=== PATIENT | male | born 1980 | race African-American/Black ===

== ENCOUNTER 2020-06-02 21:03 | Emergency (ER) | payer OTHER ==
[~2020-06-02] VITALS: Ht 180.3 cm; Wt 93.8 kg
--- NOTE | 2020-06-02 21:34 | PHYS DOC ---
Past Medical History Past Medical History: No Pertinent History Past Surgical History: Other Additional Past Surgical Histo: wrist sx Smoking Status: Current Every Day Smoker Alcohol Use: Occasionally Drug Use: Marijuana General Adult EDM: Chief Complaint: HEADACHE HPI: HPI: Patient is a 39-year-old male with no past medical history on no current medications no allergies no history of surgeries he is a smoker denies drinking or any street drugs presents with a chief complaint of headache. Patient states his entire head hurts and is a 4 out of 10. Patient states pain has been ongoing for 1 week comes and goes. He denies any associated nausea vomiting or visual changes. Patient states he has not taken any xgqy-nos-wshuldy medications such as Tylenol and ibuprofen for his pain. He states he wants his head checked out and is declining any pain medications. During my exam patient is alert and oriented x4 he is in no acute distress he is actually talking to someone on his cell phone during my entire HPI/PE. Review of Systems: Review of Systems: Constitutional: Denies fever or chills. [] Eyes: Denies change in visual acuity. [] HENT: Denies nasal congestion or sore throat. [] Respiratory: Denies cough or shortness of breath. [] Cardiovascular: Denies chest pain or edema. [] GI: Denies abdominal pain, nausea, vomiting, bloody stools or diarrhea. [] : Denies dysuria. [] Musculoskeletal: Denies back pain or joint pain. [] Integument: Denies rash. [] Neurologic: Denies focal weakness or sensory changes. [Positive headache,] Endocrine: Denies polyuria or polydipsia. [] Lymphatic: Denies swollen glands. [] Psychiatric: Denies depression or anxiety. [] Heart Score: Risk Factors: Risk Factors: DM, Current or recent (<one month) smoker, HTN, HLP, family history of CAD, obesity. Risk Scores: Score 0 - 3: 2.5% MACE over next 6 weeks - Discharge Home Score 4 - 6: 20.3% MACE over next 6 weeks - Admit for Clinical Observation Score 7 - 10: 72.7% MACE over next 6 weeks - Early Invasive Strategies Allergies: Allergies: Allergies Coded Allergies Type Severity Reaction Last Updated Verified No Known Drug Allergies 12/20/13 No Physical Exam: PE: Constitutional: Well developed, well nourished, no acute distress, non-toxic appearance. [] HENT: Normocephalic, atraumatic, bilateral external ears normal, oropharynx moist, no oral exudates, nose normal. [] Eyes: PERRLA, EOMI, conjunctiva normal, no discharge. [] Neck: Normal range of motion, no tenderness, supple, no stridor. [] Cardiovascular:Heart rate regular rhythm, no murmur [] Lungs & Thorax: Bilateral breath sounds clear to auscultation [] Abdomen: Bowel sounds normal, soft, no tenderness, no masses, no pulsatile masses. [] Skin: Warm, dry, no erythema, no rash. [] Back: No tenderness, no CVA tenderness. [] Extremities: No tenderness, no cyanosis, no clubbing, ROM intact, no edema. [] Neurologic: Alert and oriented X 3, normal motor function, normal sensory function, no focal deficits noted. [] Psychologic: Affect normal, judgement normal, mood normal. [] EKG: EKG: [] Radiology/Procedures: Radiology/Procedures: [] Impression: CT head without contrast: Reason for examination: Headache. Comparison is made to previous study dated 12/20/2013. Axial images were obtained through the brain. No contrast was administered. Exposure: One or more of the following individualized dose reduction techniques were utilized for this examination: 1. Automated exposure control 2. Adjustment of the mA and/or kV according to patient size 3. Use of iterative reconstruction technique. Ventricular systems are symmetric and not dilated. No midline shift is seen. There is no evidence of intracranial hemorrhage, infarct, mass or edema. No abnormalities are seen at the orbits. The paranasal sinuses and mastoid air cells are clear. No acute skull abnormality is seen. IMPRESSION: Course & Med Decision Making: Course & Med Decision Making Pertinent Labs and Imaging studies reviewed. (See chart for details) [] Patient was evaluated for chief complaint. Work-up consisted of radiologic imaging. CT head negative. Patient declined pain medication. Patient be discharged home. Dragon Disclaimer: Dragon Disclaimer: This electronic medical record was generated, in whole or in part, using a voice recognition dictation system. Departure Departure Impression: Primary Impression: Headache Disposition: 01 DC HOME SELF CARE/HOMELESS Condition: STABLE Referrals: NO PCP (PCP) Patient Instructions: General Headache Without Cause YUE BARRAZA DO Jun 02, 2020 21:34
--- NOTE | 2020-06-02 21:57 | RAD ---
CT head without contrast: Reason for examination: Headache. Comparison is made to previous study dated 12/20/2013. Axial images were obtained through the brain. No contrast was administered. Exposure: One or more of the following individualized dose reduction techniques were utilized for this examination: 1. Automated exposure control 2. Adjustment of the mA and/or kV according to patient size 3. Use of iterative reconstruction technique. Ventricular systems are symmetric and not dilated. No midline shift is seen. There is no evidence of intracranial hemorrhage, infarct, mass or edema. No abnormalities are seen at the orbits. The paranasal sinuses and mastoid air cells are clear. No acute skull abnormality is seen. IMPRESSION: No acute intracranial abnormality evident. Electronically signed by: Jamia Burt MD (06/02/2020 9:54 PM) [facility]
[2020-06-02 22:04] VITALS: BP 126/71
== END 2020-06-02 22:04 | disposition home or self-care (01) ==
LOC: ER 21:03
DX: R51.9 Headache, unspecified (principal); F17.200 Nicotine dependence, unspecified, uncomplicated
CPT/HCPCS: 70450; 99284

== ENCOUNTER 2020-06-04 15:40 | Emergency (ER) | payer OTHER ==
[~2020-06-04] VITALS: Ht 180.3 cm; Wt 95.2 kg
[2020-06-04 19:29] VITALS: BP 115/83
[2020-06-04] MEDS ORDERED: TOBR5DRO6 EACHEYE (20:21)
--- NOTE | 2020-06-04 20:22 | PHYS DOC ---
Past Medical History Past Medical History: No Pertinent History Past Surgical History: Other Additional Past Surgical Histo: wrist Fx Smoking Status: Current Every Day Smoker Alcohol Use: None Drug Use: Marijuana General Adult EDM: Chief Complaint: MULTIPLE COMPLAINTS HPI: HPI: Patient is a 39 year old male who presents to the ED today with another family member concerned they have COVID-19. Patient states another family member tested positive for COVID-19 10 days ago and now he has a sore throat cough body aches and bilateral eye redness. Review of Systems: Review of Systems: Constitutional: Reports body aches, denies fever Eyes: Reports bilateral eye redness denies change in visual acuity. [] HENT: Reports sore throat. Denies nasal congestion Respiratory: Reports cough, denies shortness of breath. [] Cardiovascular: Denies chest pain or edema. [] GI: Denies abdominal pain, nausea, vomiting, bloody stools or diarrhea. [] : Denies dysuria. [] Musculoskeletal: Denies back pain or joint pain. [] Integument: Denies rash. [] Neurologic: Denies headache, focal weakness or sensory changes. [] Psychiatric: Denies depression or anxiety. [] Heart Score: Risk Factors: Risk Factors: DM, Current or recent (<one month) smoker, HTN, HLP, family history of CAD, obesity. Risk Scores: Score 0 - 3: 2.5% MACE over next 6 weeks - Discharge Home Score 4 - 6: 20.3% MACE over next 6 weeks - Admit for Clinical Observation Score 7 - 10: 72.7% MACE over next 6 weeks - Early Invasive Strategies Allergies: Allergies: Allergies Coded Allergies Type Severity Reaction Last Updated Verified No Known Drug Allergies 12/20/13 No Physical Exam: PE: Constitutional: Well developed, well nourished, no acute distress, non-toxic appearance. [] HENT: Normocephalic, atraumatic, bilateral external ears normal, oropharynx moist, no oral exudates, nose normal. [] Eyes: PERRLA, EOMI, slight injection to bilateral conjunctiva no discharge. [] Neck: Normal range of motion, no tenderness, supple, no stridor. [] Cardiovascular:Heart rate regular rhythm, no murmur [] Lungs & Thorax: Bilateral breath sounds clear to auscultation [] Abdomen: Bowel sounds normal, soft, no tenderness, no masses, no pulsatile masses. [] Skin: Warm, dry, no erythema, no rash. [] Back: No tenderness, no CVA tenderness. [] Extremities: No tenderness, no cyanosis, no clubbing, ROM intact, no edema. [] Neurologic: Alert and oriented X 3, normal motor function, normal sensory function, no focal deficits noted. [] Psychologic: Affect normal, judgement normal, mood normal. [] Current Patient Data: Vital Signs: Vital Signs Date Time Temp Pulse Resp B/P (MAP) Pulse Ox O2 Delivery O2 Flow Rate FiO2 06/04/20 19:29 86 18 115/83 (94) 98 Room Air 06/04/20 17:52 97.6 97.6 EKG: EKG: [] Radiology/Procedures: Radiology/Procedures: [] Course & Med Decision Making: Course & Med Decision Making Pertinent Labs and Imaging studies reviewed. (See chart for details) This is a 39-year-old male patient presenting to the ED today complaining of fev er, body aches, sore throat and bilateral eye redness that began yesterday, he was exposed to COVID-19 10 days ago. Patient was tested for COVID-19. Given prescription for tobramycin for pinkeye. Provided instructions to quarantine himself until he gets his results back for COVID-19. Good hand hygiene emphasized. Tylenol/Motrin for pain or fever. Follow-up with his own doctor in 2 weeks Kiran Disclaimer: Kiran Disclaimer: This electronic medical record was generated, in whole or in part, using a voice recognition dictation system. Departure Departure Impression: Primary Impression: Cough Additional Impressions: Sorethroat Person under investigation for COVID-19 Bacterial conjunctivitis of both eyes Disposition: 01 DC HOME SELF CARE/HOMELESS Condition: STABLE Referrals: NO PCP (PCP) follow up with your doctor in 2 weeks Patient Instructions: Bacterial Conjunctivitis, [id number], Cough, Adult, Syiz-co-Opeu, Sore Throat, [id number] Additional Instructions: We tested you for COVID-19, please quarantine yourself until you get results. We will call you when results are available. Push fluids, maintain good and hygiene, rest. Use the prescription medicine as ordered. Follow-up with your doctor in 2 weeks Scripts Tobramycin (TOBRAMYCIN) 5 Ml Drops 1 DROP EACHEYE QID for 7 Days, #5 ML 0 Refills Prov: SUSY BARRERA APRN 06/04/20 SUSY BARRERA APRN Jun 04, 2020 20:22
--- NOTE | 2020-06-06 13:45 | NUR ---
IP: Informed pt of negative COVID test. Pt verbalized understanding.
== END 2020-06-04 20:32 | disposition home or self-care (01) ==
LOC: ER 15:40
DX: J02.9 Acute pharyngitis, unspecified (principal); Z20.828 Contact with and (suspected) exposure to other viral communicable diseases; R05 Cough; H10.89 Other conjunctivitis; F17.200 Nicotine dependence, unspecified, uncomplicated; F12.90 Cannabis use, unspecified, uncomplicated; Z98.890 Other specified postprocedural states
CPT/HCPCS: 99283; C9803; U0003

== ENCOUNTER 2020-09-12 06:55 | Emergency (ER) | payer OTHER ==
[~2020-09-12] VITALS: Ht 180.3 cm; Wt 95.0 kg
[~2020-09-12 06:55] MED LIST: TOBR5DRO6 EACHEYE
[2020-09-12] MEDS ORDERED: DEXAMETHASONE 4 MG TABLET PO SCH (07:30)
[2020-09-12] MEDS ORDERED: DEXAMETHASONE 4 MG TABLET PO STA (07:34)
--- NOTE | 2020-09-12 07:46 | RAD ---
AP chest. HISTORY: Short of breath AP view was taken of the chest. Lungs are clear. Heart is normal in size. There is no pleural effusio n. IMPRESSION: 1. No acute chest disease. Electronically signed by: Alvaro Raymundo MD (09/12/2020 7:43 AM) [id number]
[2020-09-12 08:37] LABS: BASO % 1 % (0-3); EOS # 0.2 x10^3/uL (0.0-0.7); EOS % 2 % (0-3); HEMOGLOBIN 15.3 g/dL (13.0-17.5); LYMPH # 3.2 x10^3/uL (1.0-4.8); LYMPH % 49 % (24-48); MEAN CORPUSCULAR HEMOGLOBIN 33 pg (25-35); MEAN CORPUSCULAR HGB CONC 35 g/dL (31-37); MEAN CORPUSCULAR VOLUME 95 fL (79-100); MONO # 0.4 x10^3/uL (0.0-1.1); MONO % 6 % (0-9); NEUT # 2.8 x10^3/uL (1.8-7.7); NEUT % 42 % (31-73); PLATELET COUNT 183 x10^3/uL (140-400); RED BLOOD COUNT 4.64 x10^6/uL (4.30-5.70); RED CELL DISTRIBUTION WIDTH 13.8 % (11.5-14.5); WHITE BLOOD COUNT 6.6 x10^3/uL (4.0-11.0)
[2020-09-12 08:52] LABS: CALCIUM 9.8 mg/dL (8.5-10.1); CREATININE 1.1 mg/dL (0.7-1.3); GFR 91.1; POTASSIUM 3.8 mmol/L (3.5-5.1)
[2020-09-12 08:59] VITALS: BP 120/82
[2020-09-12] MEDS ORDERED: PRED50TA PO (09:14)
[2020-09-12] MEDS ORDERED: VENTOLIN HFA18 GM INH (09:14)
--- NOTE | 2020-09-12 09:18 | ED.ADGEN ---
Past Medical History Past Medical History: No Pertinent History Past Surgical History: Other Additional Past Surgical Histo: wrist Fx Smoking Status: Current Every Day Smoker Alcohol Use: None Drug Use: Marijuana General Adult EDM: Chief Complaint: ASTHMA HPI: HPI: Patient is a 39-year-old male with past medical history of asthma who presents to the emergency room complaining of shortness of breath and intermittent chest pains when he breathes. Patient has had these symptoms multiple times in the past. He states that sometimes he gets these symptoms. He had a work-up done at [facility] a month ago. He states that he has some kind of blockage but is not sure what that means. He is not sure if that is related to his lungs or his heart. He is not on any kind of blood thinners. They told him to follow-up with his primary care physician but he has not done that yet. He states that this started last night. He has not tried anything at home for it. He does not have an inhaler. He states the pain is mild and achy when taking deep breaths at times. He denies any cough or fever. Review of Systems: Review of Systems: Complete ROS is negative unless otherwise documented in HPI Current Medications: Current Medications Medications (Trade) Dose Ordered Sig/Latisha Start Time Stop Time Status Last Admin Dose Admin Dexamethasone (Decadron) 10 mg STAT STAT 09/12/20 07:34 09/12/20 07:41 DC 09/12/20 07:43 10 MG Allergies: Allergies: Allergies Coded Allergies Type Severity Reaction Last Updated Verified No Known Drug Allergies 12/20/13 No Physical Exam: PE: General: Awake, alert, NAD. Well Nourished, well hydrated. Cooperative HEENT: Atraumatic, EOMI, PERRL, airway patent, moist oral mucosa Neck: Supple, trachea midline Respiratory: CTA bilaterally, normal effort, no wheezing/crackles CV: RRR, no murmur, cap refill <2 GI: Soft, nondistended, nontender, no masses MSK: No obvious deformities Skin: Warm, dry, intact Neuro: A&O x3, speech NL, sensory and motor grossly intact, no focal deficits Psych: Normal affect, normal mood, not suicidal or homicidal Current Patient Data: Labs: Laboratory Tests Test 09/12/20 08:29 White Blood Count 6.6 x10^3/uL (4.0-11.0) Red Blood Count 4.64 x10^6/uL (4.30-5.70) Hemoglobin 15.3 g/dL (13.0-17.5) Hematocrit 44.0 % (39.0-53.0) Mean Corpuscular Volume 95 fL (79-100) Mean Corpuscular Hemoglobin 33 pg (25-35) Mean Corpuscular Hemoglobin Concent 35 g/dL (31-37) Red Cell Distribution Width 13.8 % (11.5-14.5) Platelet Count 183 x10^3/uL (140-400) Neutrophils (%) (Auto) 42 % (31-73) Lymphocytes (%) (Auto) 49 % (24-48) H Monocytes (%) (Auto) 6 % (0-9) Eosinophils (%) (Auto) 2 % (0-3) Basophils (%) (Auto) 1 % (0-3) Neutrophils # (Auto) 2.8 x10^3/uL (1.8-7.7) Lymphocytes # (Auto) 3.2 x10^3/uL (1.0-4.8) Monocytes # (Auto) 0.4 x10^3/uL (0.0-1.1) Eosinophils # (Auto) 0.2 x10^3/uL (0.0-0.7) Basophils # (Auto) 0.0 x10^3/uL (0.0-0.2) Sodium Level 142 mmol/L (136-145) Potassium Level 3.8 mmol/L (3.5-5.1) Chloride Level 104 mmol/L (98-107) Carbon Dioxide Level 29 mmol/L (21-32) Anion Gap 9 (6-14) Blood Urea Nitrogen 11 mg/dL (8-26) Creatinine 1.1 mg/dL (0.7-1.3) Estimated GFR (Cockcroft-Gault) 91.1 Glucose Level 82 mg/dL (70-99) Calcium Level 9.8 mg/dL (8.5-10.1) Troponin I Quantitative < 0.017 ng/mL (0.000-0.055) XW-Osw-T-Type Natriuretic Peptide 6 pg/mL (0-124) Laboratory Tests 09/12/20 08:29 Laboratory Tests 09/12/20 08:29 Vital Signs: Vital Signs Date Time Temp Pulse Resp B/P (MAP) Pulse Ox O2 Delivery O2 Flow Rate FiO2 09/12/20 06:55 98.1 90 20 115/65 (82) 100 Room Air 98.1 EKG: EKG: [] Heart Score: Risk Factors: Risk Factors: DM, Current or recent (<one month) smoker, HTN, HLP, family history of CAD, obesity. Risk Scores: Score 0 - 3: 2.5% MACE over next 6 weeks - Discharge Home Score 4 - 6: 20.3% MACE over next 6 weeks - Admit for Clinical Observation Score 7 - 10: 72.7% MACE over next 6 weeks - Early Invasive Strategies Radiology/Procedures: Radiology/Procedures: [] Course & Med Decision Making: Course & Med Decision Making Pertinent Labs and Imaging studies reviewed. (See chart for details) Patient is a 39-year-old male who presents to the emergency room complaining of shortness of breath. Patient is well-appearing. Vitals are normal. Patient does not have any hypoxia obvious shortness of breath on exam. Chest x-ray is normal. Due to patient's history of possible blockage did do a troponin and BNP which are both normal. Patient is not anemic. Electrolytes are normal. He is not in any other arrhythmia. It is possible he could be having an asthma exacerbation. We will place him on steroids and will give him a prescription for his inhaler. Patient's test results and vitals while in the ED were fully reviewed and discussed with the patient. Patient is stable and at this time does not need admission to the hospital. We have discussed strict return precautions and the importance of following up with their Primary Care Physician. Patient stated understanding and was given an opportunity to ask any questions. Patient is in agreement with plan. Kiran Disclaimer: Kiran Disclaimer: This electronic medical record was generated, in whole or in part, using a voice recognition dictation system. Departure Departure Impression: Primary Impression: Asthma Additional Impression: Shortness of breath Disposition: 01 DC HOME SELF CARE/HOMELESS Condition: STABLE Referrals: NO PCP (PCP) Patient Instructions: Shortness of Breath Scripts Albuterol Sulfate (VENTOLIN HFA INHALER) 18 Gm Hfa.aer.ad 2 PUFF INH QID for FOR ASTHMA, #1 INHALER 0 Refills Prov: CHAPARRO MCCOY MD 09/12/20 Prednisone (PREDNISONE) 50 Mg Tablet 1 TAB PO DAILY, #5 TAB Prov: CHAPARRO MCCOY MD 09/12/20 Problem Qualifiers CHAPARRO MCCOY MD Sep 12, 2020 09:18
--- NOTE | 2020-09-12 17:45 | EKG ---
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
== END 2020-09-12 09:35 | disposition home or self-care (01) ==
LOC: ER 06:55
DX: J45.909 Unspecified asthma, uncomplicated (principal); R06.02 Shortness of breath; R07.89 Other chest pain; F17.200 Nicotine dependence, unspecified, uncomplicated; F12.90 Cannabis use, unspecified, uncomplicated; Z98.890 Other specified postprocedural states
CPT/HCPCS: 36415; 71045; 80048; 83880; 84484; 85025; 93005; 99285

== ENCOUNTER 2021-02-23 14:48 | Emergency (ER) | payer OTHER ==
[~2021-02-23] VITALS: Ht 177.8 cm; Wt 81.8 kg
[~2021-02-23 14:48] MED LIST changes: +PRED50TA PO; +VENTOLIN HFA18 GM INH
[2021-02-23 14:51] VITALS: BP 120/82
--- NOTE | 2021-02-23 15:27 | PHYS DOC ---
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 Patient works for [employer]. Patient states symptoms are worse when lifting things above the head. States immobilization relieves some of the pain. (SUSY BARRERA NIGHT CLERK AUDITOR) Review of Systems: Review of Systems: Constitutional: Denies fever or chills. [] Musculoskeletal: Reports right shoulder pain. Denies back pain o Integument: Denies rash. [] Neurologic: Denies headache, focal weakness or sensory changes. [] Psychiatric: Denies depression or anxiety. [] (SUSY BARRERA NIGHT CLERK AUDITOR) Heart Score: C/O Chest Pain: N/A Risk Factors: Risk Factors: DM, Current or recent (<one month) smoker, HTN, HLP, family history of CAD, obesity. Risk Scores: Score 0 - 3: 2.5% MACE over next 6 weeks - Discharge Home Score 4 - 6: 20.3% MACE over next 6 weeks - Admit for Clinical Observation Score 7 - 10: 72.7% MACE over next 6 weeks - Early Invasive Strategies (SUSY BARRERA Viraj NIGHT CLERK AUDITOR) Allergies: Allergies: Allergies Coded Allergies Type Severity Reaction Last Updated Verified No Known Drug Allergies 12/20/13 No (SUSY BARRERA NIGHT CLERK AUDITOR) Physical Exam: PE: Constitutional: Well developed, well nourished, no acute distress, non-toxic appearance. []. [] Skin: Warm, dry, no erythema, no rash. [] Back: No tenderness, no CVA tenderness. [] Extremities: Right shoulder with no obvious deformity, full range of motion to the right upper extremity/shoulder. Adequate radial, medial, ulnar sensation to the right upper extremity. +2 right radial pulse. Cap refill less than 2 seconds of right fingers Neurologic: Alert and oriented X 3, normal motor function, normal sensory function, no focal deficits noted. [] Psychologic: Affect normal, judgement normal, mood normal. [] (SUSY BARRERA APRN) Current Patient Data: Vital Signs: Vital Signs Date Time Temp Pulse Resp B/P (MAP) Pulse Ox O2 Delivery O2 Flow Rate FiO2 02/23/21 14:51 98.2 68 18 120/82 (95) 99 Room Air 98.2 (SUSY BARRERA APRN) EKG: EKG: [] (SUSY BARRERA APRN) Radiology/Procedures: Radiology/Procedures: [] (SUSY BARRERA APRN) Radiology/Procedures: PROCEDURE: SHOULDER 2+V RIGHT EXAMINATION: Right shoulder radiograph. VIEWS: 3 COMPARISON: None INDICATION:40 years, Male, pain. FINDINGS: No acute fracture, dislocation or subluxation. No bone erosion or periosteal reaction. No soft tissue swelling. IMPRESSION: No acute osseous process. Electronically signed by: Christi Horan MD (02/23/2021 6:30 PM) [facility] (BRITTANY PAZ DO) Course & Med Decision Making: Course & Med Decision Making Pertinent Labs and Imaging studies reviewed. (See chart for details) This is a 40-year-old male patient presented to the ED today with right shoulder pain after lifting heavy items at work. Right shoulder x-rays interpreted by Dr. Paz and negative for any acute findings. Discharge to home. Ice elevation encouraged. Follow-up with Ortho. You were evaluated in the emergency room for right shoulder pain, your right shoulder x-rays are negative for any acute findings. Try to ice and elevate the affected extremity. Take the prescribed medications as needed. Follow-up with your doctor in 1 to 2 weeks on the provided orthopedic doctor (SUSY BARRERA APRN) Dragon Disclaimer: Dragon Disclaimer: This electronic medical record was generated, in whole or in part, using a voice recognition dictation system. (SUSY BARRERA APRN) Departure Departure Impression: Primary Impression: Strain of right shoulder Qualified Codes: S46.911A - Strain of unspecified muscle, fascia and tendon at shoulder and upper arm level, right arm, initial encounter Disposition: HOME / SELF CARE / HOMELESS Condition: STABLE Referrals: NO PCP (PCP) VANI MARTINEZ MD Follow-up in 1 to 2 weeks Patient Instructions: Shoulder Exercises, Generic, SportsMed, Shoulder Sprain Additional Instructions: You were evaluated for right shoulder pain, your right shoulder x-rays are negative for any acute findings, you likely strained your shoulder. Try to ice and elevate the shoulder. Take it through full range of motion several times a day. Follow-up with your primary care doctor or the provided orthopedic doctor in 1 week Scripts Naproxen (NAPROXEN) 500 Mg Tablet 1 TAB PO BID for pain, #20 TAB 0 Refills Prov: SUSY BARRERA APRN 02/23/21 Cyclobenzaprine Hcl (CYCLOBENZAPRINE HCL) 10 Mg Tablet 1 TAB PO TID, #30 TAB Prov: SUSY BARRERA APRN 02/23/21 Attending Signature Attending Signature I have reviewed the PA/MOLDING SUPERVISOR's note and plan of care. I was available for consultation as needed during the patient's visit in the emergency department. I agree with the clinical impression, plan, and disposition. (BRITTANY PAZ DO) SUSY BARRERA APRN Feb 23, 2021 15:27 BRITTANY PAZ DO Feb 23, 2021 18:42
[2021-02-23] MEDS ORDERED: CYCL10TA2 PO (17:30)
[2021-02-23] MEDS ORDERED: NAPR-514 PO (17:30)
--- NOTE | 2021-02-23 18:32 | RAD ---
EXAMINATION: Right shoulder radiograph. VIEWS: 3 COMPARISON: None INDICATION:40 years, Male, pain. FINDINGS: No acute fracture, dislocation or subluxation. No bone erosion or periosteal reaction. No soft tissue swelling. IMPRESSION: No acute osseous process. Electronically signed by: Christi Horan MD (02/23/2021 6:30 PM) [facility]
== END 2021-02-23 18:12 | disposition home or self-care (01) ==
LOC: ER 14:48
DX: S46.911A Strain of unspecified muscle, fascia and tendon at shoulder and upper arm level, right arm, initial encounter (principal); F17.200 Nicotine dependence, unspecified, uncomplicated; X50.0XXA Overexertion from strenuous movement or load, initial encounter; Y93.89 Activity, other specified; Y92.69 Other specified industrial and construction area as the place of occurrence of the external cause; Y99.0 Civilian activity done for income or pay
CPT/HCPCS: 73030; 99283; A4565

== ENCOUNTER 2021-12-17 10:24 | Emergency (ER) | payer OTHER ==
[~2021-12-17] VITALS: Ht 180.3 cm; Wt 99.6 kg
[~2021-12-17 10:24] MED LIST changes: +CYCL10TA19 PO; +NAPR-514 PO
[2021-12-17] MEDS ORDERED: IV NORMAL SALINE 1000ML BAG 1,000 ML IV ONE (11:15)
[2021-12-17 11:22] LABS: BASO % 1 % (0-3); EOS # 0.2 x10^3/uL (0.0-0.7); EOS % 5 % (0-3); HEMATOCRIT 43.2 % (39.0-53.0); HEMOGLOBIN 14.8 g/dL (13.0-17.5); LYMPH # 2.5 x10^3/uL (1.0-4.8); LYMPH % 47 % (24-48); MEAN CORPUSCULAR HEMOGLOBIN 31 pg (25-35); MEAN CORPUSCULAR HGB CONC 34 g/dL (31-37); MEAN CORPUSCULAR VOLUME 92 fL (79-100); MONO # 0.3 x10^3/uL (0.0-1.1); MONO % 6 % (0-9); NEUT # 2.2 x10^3/uL (1.8-7.7); NEUT % 42 % (31-73); PLATELET COUNT 204 x10^3/uL (140-400); RED BLOOD COUNT 4.72 x10^6/uL (4.30-5.70); RED CELL DISTRIBUTION WIDTH 14.2 % (11.5-14.5); WHITE BLOOD COUNT 5.4 x10^3/uL (4.0-11.0)
[2021-12-17 11:37] LABS: CALCIUM 9.4 mg/dL (8.5-10.1); CREATININE 1.2 mg/dL (0.7-1.3); GFR 81.6; POTASSIUM 3.9 mmol/L (3.5-5.1)
[2021-12-17 11:44] LABS: ALBUMIN 3.8 g/dL (3.4-5.0); TOTAL BILIRUBIN 0.4 mg/dL (0.2-1.0); TOTAL PROTEIN 7.8 g/dL (6.4-8.2)
[2021-12-17 11:58] LABS: BACTERIA,URINE 0 /HPF (0-FEW); RBC,URINE 0 /HPF (0-2); WBC,URINE 0 /HPF (0-4)
--- NOTE | 2021-12-17 12:23 | EKG ---
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
--- NOTE | 2021-12-17 12:33 | RAD ---
EXAM: Abdomen and pelvis CT without intravenous contrast. HISTORY: Pain. TECHNIQUE: Computed tomographic images of the abdomen and pelvis were obtained without contrast. Mult iplanar reformatting was performed. *One or more of the following individualized dose reduction techniques were utilized for this examina tion: 1. Automated exposure control. 2. Adjustment of the mA and/or kV according to patient size. 3. Use of iterative reconstruction technique. COMPARISON: None. FINDINGS: Evaluation of the lower thorax demonstrates posterior dependent atelectases. There are calc ified granulomas within the right lung base. There is no infiltrate or pleural effusion. There is an ill-defined suspected hypodense lesion within the anterior right hepatic lobe measuring a pproximately 2.0 cm. The gallbladder, pancreas and adrenal glands are unremarkable. There is a small granuloma within the normal sized spleen. The kidneys are unremarkable. There is no appendicitis. There is no bowel obstruction. There is no abnormal bowel wall thickening. There is moderate stool within the rectum. The bladder is unremarkable. There is a tiny amount of asy mmetric fat within the right inguinal canal. The aorta is normal in caliber. There is no acute or cherise picious osseous finding. There is a transitional lumbosacral segment, a normal variant. The right asp ect of this segment is partially fused with the underlying sacrum. IMPRESSION: 1. No acute abdominal or pelvic finding. 2. Moderate rectal stool. 3. 2.0 cm suspected indeterminate lesion within the right hepatic lobe. This may be visible sonograph ically. Electronically signed by: Connie Bailey MD (12/17/2021 12:30 PM) [id number]
--- NOTE | 2021-12-17 12:52 | PHYS DOC ---
Past Medical History Past Medical History: No Pertinent History (LIGIA NOEL APRN) Past Surgical History: Other Additional Past Surgical Histo: wrist Fx (LIGIA NOEL APRN) Smoking Status: Current Every Day Smoker Alcohol Use: None Drug Use: Marijuana (LIGIA NOEL APRN) General Adult EDM: Chief Complaint: MULTIPLE COMPLAINTS HPI: HPI: Patient is a 41-year-old male who presents today with feeling dehydrated. 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 Patient states he has noted blood in his urine as well when he voids. Patient denies chest pain, shortness of breath, and fever and chills. (LIGIA NOEL APRN) Review of Systems: Review of Systems: Constitutional: Denies fever or chills. [] Eyes: Denies change in visual acuity. [] HENT: Denies nasal congestion or sore throat. [] Respiratory: Denies cough or shortness of breath. [] Cardiovascular: Denies chest pain or edema. [] GI: Dehydration, nausea denies abdominal pain, vomiting, bloody stools or diarrhea. [] : Denies dysuria. [] Musculoskeletal: Denies back pain or joint pain. [] Integument: Denies rash. [] Neurologic: Denies headache, focal weakness or sensory changes. [] Endocrine: Denies polyuria or polydipsia. [] Lymphatic: Denies swollen glands. [] Psychiatric: Denies depression or anxiety. [] (LIGIA NOEL APRN) Heart Score: C/O Chest Pain: No Risk Factors: Risk Factors: DM, Current or recent (<one month) smoker, HTN, HLP, family history of CAD, obesity. Risk Scores: Score 0 - 3: 2.5% MACE over next 6 weeks - Discharge Home Score 4 - 6: 20.3% MACE over next 6 weeks - Admit for Clinical Observation Score 7 - 10: 72.7% MACE over next 6 weeks - Early Invasive Strategies (LIGIA NOEL APRN) Current Medications: Current Medications Medications (Trade) Dose Ordered Sig/Latisha Start Time Stop Time Status Last Admin Dose Admin Sodium Chloride 1,000 ml @ 999 mls/hr 1X ONCE 12/17/21 11:15 12/17/21 12:15 DC 12/17/21 11:12 999 MLS/HR (LIGIA NOEL APRN) Allergies: Allergies: Allergies Coded Allergies Type Severity Reaction Last Updated Verified No Known Drug Allergies 12/20/13 No (LIGIA NOEL APRN) Physical Exam: PE: Constitutional: Well developed, well nourished, no acute distress, non-toxic appearance. [] HENT: Normocephalic, atraumatic, bilateral external ears normal, oropharynx moist, no oral exudates, nose normal. [] Eyes: PERRLA, EOMI, conjunctiva normal, no discharge. [] Neck: Normal range of motion, no tenderness, supple, no stridor. [] Cardiovascular:Heart rate regular rhythm, no murmur [] Lungs & Thorax: Bilateral breath sounds clear to auscultation [] Abdomen: Bowel sounds normal, soft, no tenderness, no masses, no pulsatile masses. [] Skin: Warm, dry, no erythema, no rash. [] Back: No tenderness, no CVA tenderness. [] Extremities: No tenderness, no cyanosis, no clubbing, ROM intact, no edema. [] Neurologic: Alert and oriented X 3, normal motor function, normal sensory function, no focal deficits noted. [] Psychologic: Affect normal, judgement normal, mood normal. [] (LIGIA NOEL APRN) Current Patient Data: Labs: Laboratory Tests Test 12/17/21 11:02 12/17/21 11:40 White Blood Count 5.4 x10^3/uL (4.0-11.0) Red Blood Count 4.72 x10^6/uL (4.30-5.70) Hemoglobin 14.8 g/dL (13.0-17.5) Hematocrit 43.2 % (39.0-53.0) Mean Corpuscular Volume 92 fL (79-100) Mean Corpuscular Hemoglobin 31 pg (25-35) Mean Corpuscular Hemoglobin Concent 34 g/dL (31-37) Red Cell Distribution Width 14.2 % (11.5-14.5) Platelet Count 204 x10^3/uL (140-400) Neutrophils (%) (Auto) 42 % (31-73) Lymphocytes (%) (Auto) 47 % (24-48) Monocytes (%) (Auto) 6 % (0-9) Eosinophils (%) (Auto) 5 % (0-3) H Basophils (%) (Auto) 1 % (0-3) Neutrophils # (Auto) 2.2 x10^3/uL (1.8-7.7) Lymphocytes # (Auto) 2.5 x10^3/uL (1.0-4.8) Monocytes # (Auto) 0.3 x10^3/uL (0.0-1.1) Eosinophils # (Auto) 0.2 x10^3/uL (0.0-0.7) Basophils # (Auto) 0.0 x10^3/uL (0.0-0.2) D-Dimer (Poornima) < 0.27 ug/mlFEU Sodium Level 139 mmol/L (136-145) Potassium Level 3.9 mmol/L (3.5-5.1) Chloride Level 105 mmol/L (98-107) Carbon Dioxide Level 30 mmol/L (21-32) Anion Gap 4 (6-14) L Blood Urea Nitrogen 15 mg/dL (8-26) Creatinine 1.2 mg/dL (0.7-1.3) Estimated GFR (Cockcroft-Gault) 81.6 BUN/Creatinine Ratio 13 (6-20) Glucose Level 108 mg/dL (70-99) H Calcium Level 9.4 mg/dL (8.5-10.1) Total Bilirubin 0.4 mg/dL (0.2-1.0) Aspartate Amino Transferase (AST) 21 U/L (15-37) Alanine Aminotransferase (ALT) 20 U/L (16-63) Alkaline Phosphatase 147 U/L (46-116) H Creatine Kinase 239 U/L (39-308) Troponin I High Sensitivity 6 ng/L (4-75) Total Protein 7.8 g/dL (6.4-8.2) Albumin 3.8 g/dL (3.4-5.0) Albumin/Globulin Ratio 1.0 (1.0-1.7) Urine Collection Type Void Urine Color (Auto) Colorless Urine Turbidity Clear Urine pH (Auto) 7.0 (<5.0-8.0) Urine Specific [place] 1.005 (1.000-1.030) Urine Protein (Auto) Negative mg/dL (Negative) Urine Glucose (Auto)(UA) Negative mg/dL (Negative) Urine Ketones (Auto) Negative mg/dL (Negative) Urine Blood (Auto) Negative (Negative) Urine Nitrite Negative (Negative) Urine Bilirubin (Auto) Negative (Negative) Urine Urobilinogen (Auto) Normal mg/dL (Normal) Urine Leukocyte Esterase (Auto) Negative (Negative) Urine RBC 0 /HPF (0-2) Urine WBC 0 /HPF (0-4) Urine Squamous Epithelial Cells Occ /LPF Urine Bacteria 0 /HPF (0-FEW) Laboratory Tests 12/17/21 11:02 Laboratory Tests 12/17/21 11:02 Vital Signs: Vital Signs Date Time Temp Pulse Resp B/P (MAP) Pulse Ox O2 Delivery O2 Flow Rate FiO2 12/17/21 11:37 83 16 120/81 (94) 100 Room Air 12/17/21 10:48 97.7 97.7 (LIGIA NOEL APRN) EKG: EKG: [] (LIGIA NOEL APRN) Radiology/Procedures: Radiology/Procedures: [REASON: low abdominal pain PROCEDURE: CT ABDOMEN PELVIS WO CONTRAST EXAM: Abdomen and pelvis CT without intravenous contrast. HISTORY: Pain. TECHNIQUE: Computed tomographic images of the abdomen and pelvis were obtained without contrast. Multiplanar reformatting was performed. *One or more of the following individualized dose reduction techniques were utilized for this examination: 1. Automated exposure control. 2. Adjustment of the mA and/or kV according to patient size. 3. Use of iterative reconstruction technique. COMPARISON: None. FINDINGS: Evaluation of the lower thorax demonstrates posterior dependent atelectases. There are calcified granulomas within the right lung base. There is no infiltrate or pleural effusion. There is an ill-defined suspected hypodense lesion within the anterior right hepatic lobe measuring approximately 2.0 cm. The gallbladder, pancreas and adrenal glands are unremarkable. There is a small granuloma within the normal sized spleen. The kidneys are unremarkable. There is no appendicitis. There is no bowel obstruction. There is no abnormal bowel wall thickening. There is moderate stool within the rectum. The bladder is unremarkable. There is a tiny amount of asymmetric fat within the right inguinal canal. The aorta is normal in caliber. There is no acute or suspicious osseous finding. There is a transitional lumbosacral segment, a normal variant. The right aspect of this segment is partially fused with the underlying sacrum. IMPRESSION: 1. No acute abdominal or pelvic finding. 2. Moderate rectal stool. 3. 2.0 cm suspected indeterminate lesion within the right hepatic lobe. This may be visible sonographically. Electronically signed by: Connie Bailey MD (12/17/2021 12:30 PM) [id number]] (LIGIA NOEL APRN) Course & Med Decision Making: Course & Med Decision Making Pertinent Labs and Imaging studies reviewed. (See chart for details) 1315 I reviewed radiological and laboratory results with patient did inform him there was no acute findings at this time. He states that he sees his urologist tomorrow and I told him that talk to him about his concerns that he had today. Patient is to return here to the emergency department should he have abdominal pain that localizes to the right lower quadrant or he starts running fever. (LIGIA NOEL APRN) Dragon Disclaimer: Dragon Disclaimer: This electronic medical record was generated, in whole or in part, using a voice recognition dictation system. (LIGIA NOEL APRN) Departure Departure Impression: Primary Impression: Nausea Disposition: 01 HOME / SELF CARE / HOMELESS Condition: STABLE Referrals: NO PCP (PCP) Additional Instructions: Follow-up with your urologist tomorrow regarding your concerns with the medication Return here to the emergency department should you develop a fever, you have abdominal pain that localizes to the right lower quadrant or you have chest pain. Attending Signature Attending Signature I have reviewed the PA/TOBACCO CONDITIONER's note and plan of care. I was available for consultation as needed during the patient's visit in the emergency department. I agree with the clinical impression, plan, and disposition. (BRITTANY PAZ DO) LIGIA NOEL APRN December 17, 2021 12:51 BRITTANY PAZ DO December 23, 2021 16:25
[2021-12-17 13:21] VITALS: BP 117/78
== END 2021-12-17 13:28 | disposition home or self-care (01) ==
LOC: ER 10:24
DX: R11.0 Nausea (principal); E86.0 Dehydration; F17.200 Nicotine dependence, unspecified, uncomplicated
CPT/HCPCS: 36415; 74176; 80053; 81001; 82550; 84484; 85025; 85379; 93005; 96360; 96361; 99285; J7030